=== PATIENT | male | born 1945 | race Caucasian/White ===

== ENCOUNTER 2018-09-07 13:06 | Day surgery (SDC) | payer OTHER ==
[~2018-09-07] VITALS: Ht 180.3 cm; Wt 79.0 kg
[~2018-09-07 13:06] MED LIST: ANAS1 PO; CHOL10002 PO; DHEA PO; FOLI1 PO; MAGNESIUM400 MG PO; MELA3 PO; Milk Thistle150 MG PO; PIOG15 PO; PROSTATE HEALT1 EACH PO; PYRI100 PO; Pantothenic Ac500 MG PO; ROSU5 PO; Saw Palmetto450 MG PO; Synthroid75 MCG PO; TAURINE PO; THYR60 PO; TUMERIC; UBID100 PO; VITAMIN B122500 MCG PO; VITAMIN C500 M1 PO; Vitamin K100 MCG PO; ZINC220 PO
== END 2018-09-07 15:47 | disposition home or self-care (01) ==
LOC: ORSCSDS 13:06
PROVIDERS: Surgery
PROC: 0DBK8ZX Excision of Ascending Colon, Via Natural or Artificial Opening Endoscopic, Diagnostic (ICD-10-PCS; principal; 2018-09-07 14:30)
PROC: 0DBP8ZX Excision of Rectum, Via Natural or Artificial Opening Endoscopic, Diagnostic (ICD-10-PCS; principal; 2018-09-07 14:30)
DX: R19.5 Other fecal abnormalities (principal); D12.2 Benign neoplasm of ascending colon; K62.1 Rectal polyp; J44.9 Chronic obstructive pulmonary disease, unspecified; F17.210 Nicotine dependence, cigarettes, uncomplicated; E03.9 Hypothyroidism, unspecified; Z79.899 Other long term (current) drug therapy
CPT/HCPCS: 82947; 88305; J2704; J7120

== ENCOUNTER 2021-04-13 06:18 | Day surgery (SDC) | payer OTHER ==
[~2021-04-13] VITALS: Ht 180.3 cm; Wt 77.8 kg
[~2021-04-13 06:18] MED LIST changes: +LEVSOD75 PO; -Synthroid75 MCG PO
[2021-04-13] MEDS ORDERED: VOGELXO75 GM TD (07:27)
[2021-04-13] MEDS ORDERED: CILO100 PO (07:29)
--- NOTE | 2021-04-13 08:25 | NUR ---
04/13/21 0825 Marc Coronado A HYDROGEN PEROXIDE TOPICAL SOLUTION INTERMEDIATE ALSO USED FOR PREP ON LEFT SHOULDER TO FINGERTIPS PER DR LYN'S ORDER.
--- NOTE | 2021-04-13 10:45 | NUR ---
04/13/21 1045 ATTILA MOLINA INCENTIVE SPIROMETER EDUCATION AND PRACTICE IMPLEMENTED
== END 2021-04-13 11:31 | disposition home or self-care (01) ==
LOC: ORSCSDS 06:18
PROVIDERS: Orthopaedic Surgery
PROC: 0LQ24ZZ Repair Left Shoulder Tendon, Percutaneous Endoscopic Approach (ICD-10-PCS; principal; 2021-04-13 07:30)
PROC: 0LS44ZZ Reposition Left Upper Arm Tendon, Percutaneous Endoscopic Approach (ICD-10-PCS; principal; 2021-04-13 07:30)
PROC: 0RNK4ZZ Release Left Shoulder Joint, Percutaneous Endoscopic Approach (ICD-10-PCS; principal; 2021-04-13 07:30)
DX: M75.112 Incomplete rotator cuff tear or rupture of left shoulder, not specified as traumatic (principal); S46.002A Unspecified injury of muscle(s) and tendon(s) of the rotator cuff of left shoulder, initial encounter; M75.22 Bicipital tendinitis, left shoulder; M75.42 Impingement syndrome of left shoulder; J44.9 Chronic obstructive pulmonary disease, unspecified; F17.210 Nicotine dependence, cigarettes, uncomplicated; E03.9 Hypothyroidism, unspecified; E78.00 Pure hypercholesterolemia, unspecified; Z79.899 Other long term (current) drug therapy
CPT/HCPCS: 82947; C1713; J0171; J1100; J1885; J2250; J2405; J2704; J3010; J3370; J7120

== ENCOUNTER 2021-10-07 10:22 | Day surgery (SDC) | payer OTHER ==
[~2021-10-07] VITALS: Ht 180.3 cm; Wt 78.5 kg
[~2021-10-07 10:22] MED LIST changes: +ASCO500 PO; +ASPIR 8181 M1 PO; -CHOL10002 PO; +CILO100 PO; -VITAMIN B122500 MCG PO; +VITAMIN B125000 MC1 PO; -VITAMIN C500 M1 PO; +VITAMIN D32000 UNI2 PO; +VOGELXO75 GM TOP
[2021-10-07] MEDS ORDERED: THYROID60 MG PO (10:43)
[2021-10-07] MEDS ORDERED: NAC600 MG PO (10:45)
--- NOTE | 2021-10-07 15:20 | NUR ---
PT TO RECOVERY ROOM POST PROCEDURE. PT DROWSY, BUT EASILY ROUSABLE, ANSWERING QUESTIONS APPROPRIATELY; DENIES PAIN POST PROCEDURE. MONITOR SR 70'S, B/P 160/86, AFEBRILE, SPO2 93% RA. L GROIN NO SWELLING/HEMATOMA, TEGADERM DRSG INTACT; ANGIO SEAL DEPLOYED BLE PULSES 2+ X 2.
[2021-10-07] MEDS ORDERED: CLOP75 PO (15:57)
--- NOTE | 2021-10-07 16:35 | NUR ---
PT HOB ELEVATED, SITE UNCHANGED.
--- NOTE | 2021-10-07 17:35 | NUR ---
PT AMB TO THE BATHROOM, GAIT STEADY; SITE UNCHANGED.
--- NOTE | 2021-10-07 17:45 | NUR ---
PT DRESSED SELF WITHOUT ISSUE, SITE UNCHANED; IV REMOVED-CANNULA INTACT.
--- NOTE | 2021-10-07 17:53 | NUR ---
PT RECEIVED DISCHARGE INSTRUCTIONS, MED LIST, SITE MANAGEMENT AND AFTER CARE INSTRUCTIONS; VERBALIZED GOOD UNDERSTANDING. PT LEFT FACILITY VIA W/C, CONDITION STABLE.
== END 2021-10-07 17:53 | disposition home or self-care (01) ==
LOC: MHTC 10:22
DX: E11.51 Type 2 diabetes mellitus with diabetic peripheral angiopathy without gangrene (principal); I70.213 Atherosclerosis of native arteries of extremities with intermittent claudication, bilateral legs; T82.856A Stenosis of peripheral vascular stent, initial encounter; Y71.8 Miscellaneous cardiovascular devices associated with adverse incidents, not elsewhere classified; E78.5 Hyperlipidemia, unspecified; E03.9 Hypothyroidism, unspecified; F17.290 Nicotine dependence, other tobacco product, uncomplicated; Z88.0 Allergy status to penicillin; Z79.899 Other long term (current) drug therapy
CPT/HCPCS: 37220; 37225; 75625; 75716; 75774; 85347; 99152; 99153; A9270; C1714; C1725; C1760; C1769; C1887; C1894; C2623; J1644; J2250; J3010; J7030; J7040; Q9967

== ENCOUNTER → 2022-10-14 | Outpatient (CLI) | payer OTHER ==
[~2022-10-14] MED LIST changes: +BUDESONIDE0.5 MG/2 M INH; +CLOP75 PO; +IPRAT-ALBUT 0.5-3 ML INH; +NAC600 MG PO; +THYROID60 MG PO
== END | disposition home or self-care (01) ==
LOC: LAB 09:59 → LAB SHORT 09:59 → LAB FUT 07-30 16:00 → EDSTATUS 07-30 16:00
DX: A04.8 Other specified bacterial intestinal infections (principal); B96.81 Helicobacter pylori [H. pylori] as the cause of diseases classified elsewhere
CPT/HCPCS: 87338